=== PATIENT | male | born 1955 | race Caucasian/White ===

== ENCOUNTER → 2017-02-14 | Outpatient (CLI) | payer BC ==
[~2017-02-14] MED LIST: ALLEGRA-D1 TAB.SR1 PO; ASPIRIN81 M2 PO; ASPIRINEC PO; B-121000 MC3 PO; BAYER ASPIRIN325 M1 PO; BIOFLEX TABLET1 EACH PO; C-10001000 M1 PO; CARVEDILOL3.125 MG PO; CARVEDILOL6.25 MG PO; CENTRUM SILVER PO; CLARITIN10 M2 PO; CLARITIN10 M3 PO; COREG6.25 MG PO; DULERA 100 MCG/13 GM INH; DULOXETINE HCL60 MG PO; ECOTRIN325 MG PO; FARXIGA10 MG PO; FLEXERIL10 M1; FLEXERIL10 M1 PO; FLEXERIL10 MG PO; FLONASE 0.05% N16 G1; GLUCOTEN CAPLET1 TAB PO; JANUVIA PO; LEVOTHYROXINE50 MC1 PO; LISINOPRIL10 MG PO; LISINOPRIL5 MG PO; METFORMIN HCL500 M1 PO; MOTRIN600 M1 PO; MOTRIN600 MG PO; MULTI VITAMIN1 EACH PO; MULTIVITAMINS1 EAC3; NEXIUM PO; OSTEO BI-FLEX1 EAC1; PRAVASTATIN SOD40 MG PO; PREDNISONE1 MG PO; PRINIVIL5 MG PO; PROAIR HFA8.5 GM IN; PROAIR HFA8.5 GM INH; VITAMIN B122500 MCG PO; ZESTRIL10 M1 PO
[2017-02-14 14:18] LABS: BUN/CREATININE RATIO 16.66; CALCIUM SERUM 9.6 mg/dL (8.4-10.2); CREATININE SERUM 0.9 mg/dL (0.6-1.4); GLOM FILT RATE Estimated 90.6 mL/min (>60); POTASSIUM 5.2 mmol/L (3.5-5.1)
== END | disposition home or self-care (01) ==
LOC: CLAB 13:28
PROVIDERS: Internal Medicine Endocrinology, Diabetes & Metabolism
DX: E11.65 Type 2 diabetes mellitus with hyperglycemia (principal); I25.10 Atherosclerotic heart disease of native coronary artery without angina pectoris
CPT/HCPCS: 36415; 80048; 83036

== ENCOUNTER → 2017-03-25 | Outpatient (CLI) | payer BC ==
--- NOTE | ~2017-03-25 | US38 ---
[facility] A Service of [facility] RADIOLOGY TEXT RESULTS PATIENT: ARCHANA HUERTA SR LOCATION: CNIV : 53 UNIT #: [id number] AGE: [address]: ED YARBROUGH APRN SEX: M ORDER DR: [id number] [facility] [address] [place], [place] [address] [id number] O MR#: [id number] Acc #: [id number] NAME: ARCHANA HUERTA, : 1955 SEX: M STUDY DATE/TIME: 03/25/2017 12:15 UNIT: CNIV ROOM: STUDY DESCRIPTION: US Carotid W/Doppler Unilatera Attending Physician: Ed Yarbrough Aprn Referring Physician: Ed Yarbrough Aprn Ordering Physician: Ed Yarbrough Aprn Primary Care Physician: Beni Barahona M.D. MEDICAL IMAGING REPORT This report is preliminary unless electronic signature is present EXAM Left carotid duplex, 03/25/2017. HISTORY Left carotid endarterectomy on 02/05/2017. FINDINGS Duplex imaging of the left carotid artery was performed. The left common, internal, and external carotid arteries are widely patent post endarterectomy. Velocity in the left common carotid is 67, internal is 59 proximally, 54 midportion, and 51 distally. External is 96 cm/sec. Left ICA:CCA ratio is 0.8. Antegrade flow is seen in the left vertebral artery. IMPRESSION 1. Normal carotid duplex of the left internal and external carotid arteries, post endarterectomy. 2. Antegrade flow is seen in the left vertebral artery. Dictated by... Dennis Morales M.D. THIS IS AN ELECTRONICALLY VERIFIED REPORT Dennis Morales M.D. at 03/26/2017 4:08 PM Danita TD: 03/25/2017 16:06 JOB #: [id number] MEDICAL IMAGING REPORT [facility] A Service of [facility] RADIOLOGY TEXT RESULTS PATIENT: ARCHANA HUERTA SR LOCATION: CNIV : 53 UNIT #: [id number] AGE: [address]: ED YARBROUGH APRN SEX: M ORDER DR: Page 1 of 1 COPY
== END | disposition home or self-care (01) ==
LOC: CNIV 11:40
DX: I65.29 Occlusion and stenosis of unspecified carotid artery (principal); Z98.890 Other specified postprocedural states
CPT/HCPCS: 93882

== ENCOUNTER 2017-03-28 17:28 | Emergency (ER) | payer BC ==
--- NOTE | ~2017-03-28 | CR133 ---
[facility]. [facility] A Service of [facility] & [facility] RADIOLOGY TEXT RESULTS PATIENT: ARCHANA HUERTA SR LOCATION: SED : 53 UNIT #: [id number] AGE: [address]: SAAD ROCHA SEX: M ORDER DR: [id number] [place] [id number] E MR#: [id number] Acc #: [id number] NAME: ARCHANA HUERTA SR : 1955 SEX: M STUDY DATE/TIME: 03/28/2017 17:57 UNIT: SED ROOM: STUDY DESCRIPTION: CR Forearm 2 View Rt Attending Physician: Saad Rocha Ordering Physician: Saad Rocha Primary Care Physician: Beni Barahona M.D. MEDICAL IMAGING REPORT This report is preliminary unless electronic signature is present. EXAM Right forearm, 2 views HISTORY Forearm pain and abrasion after injury today. FINDINGS Two views of the right forearm demonstrate normal bone alignment. No fracture, joint space narrowing or dislocation. Very mild degenerative changes in the wrist and elbow. IMPRESSION No acute findings. Dictated by... Ahmet Nelson M.D. THIS IS AN ELECTRONICALLY VERIFIED REPORT Ahmet Nelson M.D. at 03/28/2017 10:54 PM DFL/psc TD: 03/28/2017 21:23 JOB #: [id number] MEDICAL IMAGING REPORT Page 1 of 1
[~2017-03-28 17:28] MED LIST changes: -JANUVIA PO; -MULTIVITAMINS1 EAC3; -OSTEO BI-FLEX1 EAC1
[2017-03-28] MEDS ORDERED: MULTIVITAMINS1 EAC3 (17:46)
[2017-03-28] MEDS ORDERED: JANUVIA PO (17:47)
[2017-03-28] MEDS ORDERED: OSTEO BI-FLEX1 EAC1 (17:47)
== END 2017-03-28 18:33 | disposition home or self-care (01) ==
LOC: SED 17:28
DX: S51.811A Laceration without foreign body of right forearm, initial encounter (principal); F17.210 Nicotine dependence, cigarettes, uncomplicated; I10 Essential (primary) hypertension; J44.9 Chronic obstructive pulmonary disease, unspecified; E11.9 Type 2 diabetes mellitus without complications; E78.5 Hyperlipidemia, unspecified; Z87.442 Personal history of urinary calculi; Z23 Encounter for immunization; Z79.82 Long term (current) use of aspirin; Z79.899 Other long term (current) drug therapy; Z88.8 Allergy status to other drugs, medicaments and biological substances; W26.8XXA Contact with other sharp object(s), not elsewhere classified, initial encounter; Y92.89 Other specified places as the place of occurrence of the external cause
CPT/HCPCS: 73090; 90471; 90715; 99283